=== PATIENT | male | born 1975 | race Caucasian/White ===

== ENCOUNTER 2018-09-24 19:51 | Observation (INO) | payer SELFPAY ==
[2018-09-24] MEDS ORDERED: MORPHINE 4 MG/ML SYR ONE (20:00)
[2018-09-24 20:18] LABS: Absolute Lymphocytes (CBC) 2.2 K/uL (0.7-4.9); Absolute Monocytes 0.6 K/uL (0.1-1.3); Absolute Neutrophil 5.6 K/uL (1.8-8.0); Basophils % 0.9 % (0-1.3); Eosinophils % 1.5 % (0-4.4); Hematocrit 41.4 % (39.6-49.0); Lymphocytes % 25.1 % (15.3-44.8); MCH 28.5 pg (27.0-35.0); MPV 7.3 fL (7.6-11.3); RBC Red Blood Cell Count 4.76 M/uL (4.33-5.43)
[2018-09-24] MEDS ORDERED: NA CHLORIDE 0.9% 1,000 ML ONE ×2 (20:19→23:14)
[2018-09-24] MEDS ORDERED: CEFAZOLIN/SWI 1gm 1 GM/10 ML SYR ONE (20:19)
--- NOTE | 2018-09-24 20:25 | RAD REPORT ---
EXAM DESCRIPTION: Jamar Martinez Left09/24/2018 8:02 pm CLINICAL HISTORY: Left leg pain status post injury FINDINGS: No fracture is seen. Soft tissue laceration involves the lateral aspect of the knee.
[2018-09-24 20:29] LABS: Potassium 3.3 mmol/L (3.5-5.1)
--- NOTE | 2018-09-24 20:36 | ER ---
Nurse's Notes [facility] Name: Uriel Benz Age: 43 yrs Sex: Male : 1975 Arrival Date: 09/24/2018 Time: 19:52 Bed 20 Private MD: Diagnosis: Laceration without foreign body of lower leg;Laceration of tendon of lower leg muscle unspecified Presentation: 09/24 19:52 Presenting complaint: Patient states: "I was doing some tree work up in the tree and my jd3 chain saw kicked back on me and got me in the left leg.". Transition of care: patient was not received from another setting of care. Complicating Factors: There are no complicating factors for this patient. Onset of symptoms was September 24, 2018. Risk Assessment: Do you want to hurt yourself or someone else? Patient reports no desire to harm self or others. Initial Sepsis Screen: Does the patient meet any 2 criteria? HR > 90 bpm. No. Patient's initial sepsis screen is negative. Does the patient have a suspected source of infection? Yes: Skin breakdown/wound. Care prior to arrival: None. 19:52 Method Of Arrival: Wheelchair jd3 19:52 Acuity: [place] 2 jd3 Historical: - Allergies: 20:21 No Known Allergies; jd3 - Home Meds: 20:21 None [Active]; jd3 - PMHx: 20:21 Chronic pain; lung problems due to drinking gas as a child; jd3 - PSHx: 20:21 right hand; jd3 - Immunization history:: Adult Immunizations up to date. - Social history:: Smoking status: Patient uses tobacco products, denies chronic smoking, but will smoke occasionally, chewing tobacco. - Ebola Screening: : Patient negative for fever greater than or equal to 101.5 degrees Fahrenheit, and additional compatible Ebola Virus Disease symptoms. Screenin:24 Abuse screen: Denies threats or abuse. Nutritional screening: No deficits noted. jd3 Tuberculosis screening: No symptoms or risk factors identified. Fall Risk IV access (20 points). Ambulatory Aid- None/Bed Rest/Nurse Assist (0 pts). Gait- Weak (10 pts.). Mental Status- Oriented to own ability (0 pts). Total Chappell Fall Scale indicates Low Risk Score (25-44 pts). Fall prevention measures have been instituted. Side Rails Up X 2 Placed close to Nursing Station Frequent Obs/Assesments occuring Family Present and informed to notify staff if they need to leave bedside. Assessment: 19:57 General: Appears uncomfortable, Behavior is calm, cooperative. Pain: Complains of pain jd3 in left leg. Neuro: Level of Consciousness is awake, alert, obeys commands, Oriented to person, place, time, situation, Appropriate for age Intact. Cardiovascular: Capillary refill < 3 seconds Patient's skin is warm and dry. Respiratory: Airway is patent Respiratory effort is even, unlabored, Respiratory pattern is regular, symmetrical. GI: No signs and/or symptoms were reported involving the gastrointestinal system. : No signs and/or symptoms were reported regarding the genitourinary system. EENT: No signs and/or symptoms were reported regarding the EENT system. Derm: Skin is intact, Skin is dry, Skin is normal, Skin temperature is warm Wound noted lateral aspect of left knee Wound is open wound, full thickness cut from chain saw. Musculoskeletal: Circulation, motion, and sensation intact. Range of motion: limited in left knee and left ankle. Injury Description: Laceration sustained to lateral aspect of left knee is jagged, not bleeding. 20:45 Reassessment: No changes from previously documented assessment. Patient and/or family jd3 updated on plan of care and expected duration. Pain level reassessed. Patient is alert, oriented x 3, equal unlabored respirations, skin warm/dry/pink. 21:15 Reassessment: No changes from previously documented assessment. Patient and/or family jd3 updated on plan of care and expected duration. Pain level reassessed. Patient is alert, oriented x 3, equal unlabored respirations, skin warm/dry/pink. report given to OR nurse. Vital Signs: 19:55 BP 140 / 86; Pulse 112; Resp 19 S; Temp 98.5(O); Pulse Ox 100% on R/A; Weight 72.57 kg jd3 (R); Height 5 ft. 11 in. (180.34 cm) (R); Pain 10/10; 20:30 BP 130 / 80; Pulse 90; Resp 19 S; Pulse Ox 97% on R/A; jd3 19:55 Body Mass Index 22.32 (72.57 kg, 180.34 cm) jd3 ED Course: 19:52 Patient arrived in ED. ds1 19:52 [facility] F[facility]-C [facility]. snw 19:52 Cassius Rios MD is Attending Physician. snw 19:55 Arm band placed on. jd3 19:57 Inserted saline lock: 18 gauge in right forearm, using aseptic technique. Blood jd3 collected. placed by Luz VIRAMONTES. 20:02 Tib Fib Left XRAY In Process Unspecified. EDMS 20:10 Rich Lang RN is Primary Nurse. jd3 20:20 Triage completed. jd3 20:25 Patient has correct armband on for positive identification. Bed in low position. Call jd3 light in reach. Side rails up X2. Adult w/ patient. 20:33 Yonatan Ann MD is Hospitalizing Provider. snw 21:01 Chest Single View XRAY In Process Unspecified. EDMS 21:21 No provider procedures requiring assistance completed. EKG done, by ED staff, reviewed jd3 by Areli SOTO. Patient admitted, IV remains in place. Administered Medications: 20:03 Drug: morphine 4 mg Route: IVP; Site: right forearm; jd3 21:00 Follow up: Response: No adverse reaction; Pain is decreased jd3 20:18 Drug: NS 0.9% 1000 ml Route: IV; Rate: 1 bolus; Site: right forearm; jd3 21:00 Follow up: Response: No adverse reaction; IV Status: Completed infusion; IV Intake: jd3 1000ml 20:18 Drug: Ancef 1 grams Route: IVPB; Site: right forearm; jd3 21:00 Follow up: Response: No adverse reaction; IV Status: Completed infusion jd3 21:14 Drug: NS 0.9% 500 ml Route: IV; Rate: calculated rate; Site: right forearm; jd3 21:16 Follow up: Response: No adverse reaction; IV Status: Infusion continued upon admission jd3 21:15 Drug: Potassium Chloride 20 mEq Route: IV; Rate: calculated rate; Site: right forearm; jd3 21:16 Follow up: Response: No adverse reaction; IV Status: Infusion continued upon admission jd3 22:25 Not Given (Physician Discretion): Lidocaine (1 %) 1 vials 20 ml Infiltration once; to jd3 bedside Intake: 21:00 IV: 1000ml; Total: 1000ml. jd3 Outcome: 20:35 Decision to Hospitalize by Provider. snw 21:21 Patient left the ED. jd3 21:21 Admitted to OR accompanied by nurse, via stretcher, with chart, Report called to jd3 report given to OR nurse. 21:21 Condition: stable 21:21 Instructed on the need for admit, Demonstrated understanding of instructions. jd3 Signatures: Dispatcher [facility] EDMD Areli Larson FNP-C FNP-Naina Savage ds1 Rich Lang RN RN jd3 Corrections: (The following items were deleted from the chart) 22:20 21:15 Reassessment: report given to OR nurse jd3 jd3 22:23 22:22 Response: No adverse reaction; IV Status: Infusion continued upon admission jd3 jd3 :35 22:20 No provider procedures requiring assistance completed. jd3 jd3 :35 22:20 Patient admitted, IV remains in place. jd3 jd3 :35 22:20 EKG done, by ED staff, reviewed by Areli SOTO jd3 jd3
--- NOTE | 2018-09-24 20:36 | EDPHYS ---
Physician Documentation [facility] Name: Uriel Benz Age: 43 yrs Sex: Male : 1975 Arrival Date: 09/24/2018 Time: 19:52 Bed 20 Private MD: ED Physician Cassius Rios HPI: 09/24 19:57 This 43 yrs old Male presents to ER via Unassigned with complaints of snw Laceration To Leg. 19:57 The patient has a laceration related to: working, occurred outdoors, and pt was tied snw off 80 feet off the ground and the chainsaw he was using kicked back and struck him to left proximal lower leg. The laceration(s) is(are) located on the lateral aspect of left knee. Onset: The symptoms/episode began/occurred suddenly, just prior to arrival. Associated signs and symptoms: The patient has no apparent associated signs or symptoms. The patient has not experienced similar symptoms in the past. It is unknown whether or not the patient has recently seen a physician. no allergies, no meds, pt states he did not fall. 20:25 Pt last po 45 min prior to wound, NPO status discussed. snw Historical: - Allergies: 20:21 No Known Allergies; jd3 - Home Meds: 20:21 None [Active]; jd3 - PMHx: 20:21 Chronic pain; lung problems due to drinking gas as a child; jd3 - PSHx: 20:21 right hand; jd3 - Immunization history:: Adult Immunizations up to date. - Social history:: Smoking status: Patient uses tobacco products, denies chronic smoking, but will smoke occasionally, chewing tobacco. - Ebola Screening: : Patient negative for fever greater than or equal to 101.5 degrees Fahrenheit, and additional compatible Ebola Virus Disease symptoms. ROS: 19:57 Constitutional: Negative for fever, chills, and weight loss, Eyes: Negative for injury, snw pain, redness, and discharge, ENT: Negative for injury, pain, and discharge, Neck: Negative for injury, pain, and swelling, Cardiovascular: Negative for chest pain, palpitations, and edema, Respiratory: Negative for shortness of breath, cough, wheezing, and pleuritic chest pain, Abdomen/GI: Negative for abdominal pain, nausea, vomiting, diarrhea, and constipation, Back: Negative for injury and pain, : Negative for injury, bleeding, discharge, and swelling, Skin: Negative for injury, rash, and discoloration, Neuro: Negative for headache, weakness, numbness, tingling, and seizure. 19:57 MS/extremity: Positive for injury or acute deformity, pain, of the lateral aspect of left knee. Exam: 19:56 Constitutional: This is a well developed, well nourished patient who is awake, alert, snw and in no acute distress. Head/Face: Normocephalic, atraumatic. Eyes: Pupils equal round and reactive to light, extra-ocular motions intact. Lids and lashes normal. Conjunctiva and sclera are non-icteric and not injected. Cornea within normal limits. Periorbital areas with no swelling, redness, or edema. ENT: Nares patent. No nasal discharge, no septal abnormalities noted. Tympanic membranes are normal and external auditory canals are clear. Oropharynx with no redness, swelling, or masses, exudates, or evidence of obstruction, uvula midline. Mucous membranes moist. Neck: Trachea midline, no thyromegaly or masses palpated, and no cervical lymphadenopathy. Supple, full range of motion without nuchal rigidity, or vertebral point tenderness. No Meningismus. Chest/axilla: Normal chest wall appearance and motion. Nontender with no deformity. No lesions are appreciated. 19:56 Respiratory: Lungs have equal breath sounds bilaterally, clear to auscultation and percussion. No rales, rhonchi or wheezes noted. No increased work of breathing, no retractions or nasal flaring. Abdomen/GI: Soft, non-tender, with normal bowel sounds. No distension or tympany. No guarding or rebound. No evidence of tenderness throughout. Back: No spinal tenderness. No costovertebral tenderness. Full range of motion. Neuro: Awake and alert, GCS 15, oriented to person, place, time, and situation. Cranial nerves II-XII grossly intact. Motor strength 5/5 in all extremities. Sensory grossly intact. Cerebellar exam normal. Normal gait. Psych: Awake, alert, with orientation to person, place and time. Behavior, mood, and affect are within normal limits. 19:56 Cardiovascular: Rate: tachycardic, Rhythm: regular, Heart sounds: normal. 19:56 Skin: Appearance: normal except for affected area, injury, laceration(s), the wound is approximately 8 cm(s), with a depth of 4 cm(s), of the lateral aspect of left knee. Vital Signs: 19:55 BP 140 / 86; Pulse 112; Resp 19 S; Temp 98.5(O); Pulse Ox 100% on R/A; Weight 72.57 kg jd3 (R); Height 5 ft. 11 in. (180.34 cm) (R); Pain 10/10; 20:30 BP 130 / 80; Pulse 90; Resp 19 S; Pulse Ox 97% on R/A; jd3 19:55 Body Mass Index 22.32 (72.57 kg, 180.34 cm) jd3 MDM: 19:55 Patient medically screened. snw 20:23 Data reviewed: vital signs, nurses notes. Data interpreted: Pulse oximetry: on room air snw is 100 %. Interpretation: normal. Counseling: I had a detailed discussion with the patient and/or guardian regarding: the historical points, exam findings, and any diagnostic results supporting the discharge/admit diagnosis, the presence of at least one elevated blood pressure reading (>120/80) during this emergency department visit, lab results, radiology results. Physician consultation: Yonatan Ann MD was called at 20:18, was contacted at 20:18, regarding patient's condition, OR washout and closure, and will see patient in ED, shortly. 09/24 19:54 Order name: CBC with Diff; Complete Time: 20:20 snw 09/24 19:54 Order name: Chem 7; Complete Time: 20:32 snw 09/24 19:54 Order name: Tib Fib Left XRAY; Complete Time: 20:26 snw 09/24 19:54 Order name: TS; Complete Time: 21:02 snw 09/24 20:44 Order name: Chest Single View XRAY; Complete Time: 21:18 snw 09/24 21:02 Order name: ABO/RH no charge; Complete Time: 21:02 EDMS 09/24 19:55 Order name: Wound Care; Complete Time: 22:23 snw 09/24 20:44 Order name: EKG; Complete Time: 20:44 snw 09/24 20:16 Order name: consult Pablo-Yonatan Ann MD (ORTHOPEDICS) snw 09/24 20:23 Order name: NPO; Complete Time: 20:25 snw 09/24 20:44 Order name: EKG - Nurse/Tech; Complete Time: 21:13 snw Administered Medications: 20:03 Drug: morphine 4 mg Route: IVP; Site: right forearm; jd3 21:00 Follow up: Response: No adverse reaction; Pain is decreased jd3 20:18 Drug: NS 0.9% 1000 ml Route: IV; Rate: 1 bolus; Site: right forearm; jd3 21:00 Follow up: Response: No adverse reaction; IV Status: Completed infusion; IV Intake: jd3 1000ml 20:18 Drug: Ancef 1 grams Route: IVPB; Site: right forearm; jd3 21:00 Follow up: Response: No adverse reaction; IV Status: Completed infusion jd3 21:14 Drug: NS 0.9% 500 ml Route: IV; Rate: calculated rate; Site: right forearm; jd3 21:16 Follow up: Response: No adverse reaction; IV Status: Infusion continued upon admission jd3 21:15 Drug: Potassium Chloride 20 mEq Route: IV; Rate: calculated rate; Site: right forearm; jd3 21:16 Follow up: Response: No adverse reaction; IV Status: Infusion continued upon admission jd3 22:25 Not Given (Physician Discretion): Lidocaine (1 %) 1 vials 20 ml Infiltration once; to jd3 bedside Disposition: 09/25 06:50 Co-signature as Attending Physician, Cassius Rios MD I agree with the assessment and wa plan of care. Disposition: 09/24/18 20:35 Hospitalization ordered by Yonatan Ann for Observation. Preliminary diagnosis are Laceration without foreign body of lower leg, Laceration of tendon of lower leg muscle unspecified. - Bed requested for Operating Room. - Status is Observation. jd3 - Condition is Stable. - Problem is new. - Symptoms are unchanged. UTI on Admission? No Signatures: Dispatcher [employer] EDMS Areli Larson FNP-C ASSOCIATE STORE MANAGER-[employer] Cassius Rios MD MD wa Davies, Jonathon, RN RN jd3 Corrections: (The following items were deleted from the chart) 09/24 21:21 20:35 Hospitalization Ordered by Yonatan Ann MD for Observation. Preliminary diagnosis jd3 is Laceration without foreign body of lower leg; Laceration of tendon of lower leg muscle unspecified. Bed requested for Operating Room. Status is Observation. Condition is Stable. Problem is new. Symptoms are unchanged. UTI on Admission? No. snw
[2018-09-24] MEDS ORDERED: KCL 20 MEQ/100 mL IVPB 20 MEQ/100 ML BAG IV ONE (21:03)
--- NOTE | 2018-09-24 21:07 | RAD REPORT ---
EXAM DESCRIPTION: Santino Single View09/24/2018 9:01 pm CLINICAL HISTORY: Chest pain COMPARISON: 2009 FINDINGS: The lungs appear clear of acute infiltrate. The heart is normal size IMPRESSION: No acute abnormalities displayed
[2018-09-24] MEDS ORDERED: NA CHLORIDE 0.9% 500 ML ONE (21:08)
[2018-09-24] MEDS ORDERED: PROPOFOL 200 MG/20 ML VIAL IV ONE (21:22)
[2018-09-24] MEDS ORDERED: SUCCINYLCHOLINE 20 MG/ML (10 ML) IV ONE (21:30)
[2018-09-24] MEDS ORDERED: FENTANYL CITR 100 MCG/2 ML ONE (21:40)
[2018-09-24] MEDS ORDERED: MIDAZOLAM HCL 2 MG/2 ML INJ ONE (21:41)
[2018-09-24] MEDS ORDERED: KETOROLAC 30 MG/ML INJ ONE (22:03)
[2018-09-24] MEDS ORDERED: DEXAMETHASONE 10 MG/ML VIAL ONE (22:03)
[2018-09-24] MEDS ORDERED: ONDANSETRON HCL 40 MG/20 ML VIAL ONE (22:03)
[2018-09-24] MEDS ORDERED: DOCUSATE NA 100 MG CAP PO PRN (22:48)
[2018-09-24] MEDS ORDERED: MORPHINE 4 MG/ML SYR IV PRN (22:48)
[2018-09-24] MEDS ORDERED: ONDANSETRON 4 MG/2 ML VIAL IV PRN (22:48)
--- NOTE | 2018-09-24 22:48 | P.BOP ---
Preoperative diagnosis: left knee laceration Postoperative diagnosis: same, left knee traumatic arthrotomy Primary procedure: Irrigation and debridement left knee wound Secondary procedure: Irrigation and debridement left knee traumatic arthrotomy Fabrication Supervisor: NONE,NONE Estimated blood loss: 20 cc Specimen: none Findings: see dictation Anesthesia: General Complications: None Implants: none Fluids & blood products: per anesthesia Transferred to: Recovery Room Condition: Good
[2018-09-24] MEDS: HYDROMORPHONE HCL 1 MG/ML INJ ONE ×2 (23:23→23:28)
[2018-09-25] MEDS: HYDROCODONE/APAP 7.5/325 MG TAB PO PRN ×2 (00:37→05:11)
[2018-09-25] MEDS ORDERED: CEFAZOLIN SODIUM 1 GM/VIAL ONE (01:42)
[2018-09-25] MEDS ORDERED: NA CHLORIDE 0.9% 50 ML ONE (01:46)
[2018-09-25] MEDS ORDERED: CEFAZOLIN/NS 1gm 1 GM/50 ML BAG IVPB SCH (02:00)
[2018-09-25 05:28] LABS: Absolute Lymphocytes (CBC) 0.8 K/uL (0.7-4.9); Absolute Monocytes 0.4 K/uL (0.1-1.3); Absolute Neutrophil 6.4 K/uL (1.8-8.0); Basophils % 0.3 % (0-1.3); Eosinophils % 0.1 % (0-4.4); Hematocrit 35.7 % (39.6-49.0); Lymphocytes % 10.3 % (15.3-44.8); MCH 29.1 pg (27.0-35.0); MCV 86.6 fL (80-100); MPV 7.5 fL (7.6-11.3); RBC Red Blood Cell Count 4.12 M/uL (4.33-5.43)
[2018-09-25 05:41] LABS: BUN Blood Urea Nitrogen 16 mg/dL (7-18); Bicarbonate 27 mmol/L (21-32); Glucose Level 134 mg/dL (74-106); Potassium 4.8 mmol/L (3.5-5.1); Sodium Level 141 mmol/L (136-145)
--- NOTE | 2018-09-25 05:49 | HP ---
Date of Admission: 09/24/2018 Chief Complaint: Left knee laceration. History Of Present Illness: Uriel is a 43-year-old male who presented to the ER today after sustain ing an injury to his left knee. He states he was cutting a tree with a chainsaw when the chainsaw ca me back and struck the lateral aspect of his left knee. He reports subsequent pain and bleeding to t he lateral aspect of his left knee. He was brought to the emergency room, had x-rays which were negat christel for any fracture or dislocation but had a laceration over the left knee with gross contamination. He was up-to-date with his tetanus vaccine. He was given Ancef in the emergency room. He denies an y numbness or tingling of the left lower extremity. He reports a full range of motion of the left kn ee though he does report a history of a prior left ankle injury and chronic left ankle pain. Review of Systems: As above, otherwise negative. Past Medical History: None. Past Surgical History: None. Medication: Naproxen. Allergies: NO KNOWN DRUG ALLERGIES. Social History: Reports both history of smoking as well as smokeless tobacco use. Reports occasiona l alcohol use. Family History: Reviewed and noncontributory. Physical Examination: General: In no apparent distress. HEENT: Normocephalic, atraumatic. Neck: Supple. Cardiovascular: Brisk cap refill to all digits. Chest: Nonlabored breathing. Abdomen: Nondistended. Psychiatric: Responsive to exam. Musculoskeletal: Bilateral upper extremities functional range of motion without pain or gross deform ities. No obvious dislocations. Right lower extremity functional range of motion without pain. No gross deformities. No obvious dislocations. Left lower extremity, he has an approximately 10 cm com plex laceration over the lateral aspect of the left knee with some gross contamination. No exposed b one noted. He has the range of motion of the knee with pain. No effusion noted. He has positive fi ring in EHL, FHL, gastrocsoleus complex, tibialis anterior. Sensation intact in deep peroneal, super ficial peroneal and tibial nerve distribution, 2+ dorsalis pedis pulse. Diagnostic Studies: X-rays of the left knee are negative for any fracture or dislocation. Negative for any obvious foreign body. Assessment And Plan: Uriel is a 43-year-old male with a complex left knee laceration and possible t raumatic arthrotomy. I discussed with the patient at length his diagnosis as well as treatment optio ns. Given the contamination of the knee wounds, I have recommend an urgent irrigation and debridemen t and exploration to rule out traumatic arthrotomy. He expressed understanding and elected to procee d with operative treatment. He has already received antibiotics in emergency room and we will contin ue his IV antibiotics postoperatively. We will continue to monitor him after surgery. KALPESH/PATRICK Voice ID: [id number]
--- NOTE | 2018-09-25 06:36 | EKG ---
Test Date: 2018-09-24 Test Time: 21:06:34 Texturing Machine Fixer: JAMES MEASUREMENT RESULTS: Intervals: Rate: 84 CO: 156 QRSD: 80 QT: 372 QTc: 439 [place]: P: 69 CO: 156 QRS: 68 T: 65 INTERPRETIVE STATEMENTS: Normal sinus rhythm cannot rule out Anterior infarct, age undetermined Abnormal ECG Compared to ECG 07/20/2010 14:54:51 possible Myocardial infarct finding now present Sinus tachycardia no longer present Electronically Signed On 09-25-18 06:35:54 CDT by Kory Hollingsworth
[2018-09-25] MEDS ORDERED: INFLUENZA VACCINE (for 3y+) 0.5 ML DOSE IMVAC ONE (08:00)
[2018-09-25] MEDS: CEFAZOLIN/SWI 1gm 1 GM/10 ML SYR IV SCH ×3 (09:18→15:21)
[2018-09-25] MEDS ORDERED: HYDROCODONE/APAP 7.5/325 MG TAB PO PRN (10:08)
--- NOTE | 2018-09-25 10:22 | OP ---
Date of Procedure: 09/24/2018 Surgeon: Yonatan Ann MD Preoperative Diagnosis: Left knee complex laceration. Postoperative Diagnoses: 1. Left knee complex laceration. 2. Left knee traumatic arthrotomy. Procedure Performed: 1. Irrigation and debridement, left knee wound. 2. Irrigation and debridement, left knee traumatic arthrotomy. 3. Closure of the complex laceration, 10 cm. Anesthesia: General endotracheal. Fluids: Per Anesthesia record. Ebl: 20 cc. Tourniquet Time: None. Implants: None. Specimens: None. Complications: None. Indication For Procedure: This is a 43-year-old male who presented to the ER today after sustaining a laceration of the lateral aspect of his left knee while using a chainsaw. He was neurovascularly intact noted during the examination of his left knee. We discussed with the patient at length risks and benefits associated with operative and nonoperative treatment. He expressed understanding and elected to proceed with operative treatment. Description Of Procedure: After informed consent was obtained, the patient was identified in the preoperative holding area. The left lower extremity was marked. The patient was then taken back to the operating room, placed under general endotracheal anesthesia, transferred to the operating table in the supine fashion. The left lower extremity was then prepped and draped in usual sterile fashion. A time-out was initiated. The correct patient and procedure were confirmed and identified. The patient had received preoperative antibiotics in the emergency room given his injury. The left knee was then first irrigated with 4 L of normal saline using gravity irrigation and use of cysto tubing. Gross examination was performed. Once the wound was exposed, it was noted that there was minimal gross contamination within the wound. Hemostasis was achieved with the aid of Bovie electrocautery. After additional irrigation with 4 L of normal saline down to the left knee, the knee was explored further. There was noted to be a traumatic arthrotomy of the knee joint with articular surface of the lateral femoral condyle noted. Therefore, the arthrotomy was exposed and 4 L of normal saline was then used to irrigate the left knee joint without complication. After the wound in the knee joint had been irrigated thoroughly with normal saline. During exposure, the patient was noted to have a frayed IT band which had been cut with a chainsaw. The IT band edges were frayed and unalbe to be approximated. The knee was stressed. There was no significant varus instability noted. Traumatic arthrotomy was then loosely approximated using a 2-0 Monocryl. The skin edges were then freshened and all nonviable tissue was incised and a 10 cm laceration was then approximated using a 2-0 nylon. This was done loosely to allow for drainage. Sterile dressings were then applied and the patient was placed in a knee immobilizer. He was awakened and transferred to PACU in a stable condition. Postoperative Plan: He will be admitted to the floor for observation and pain control. Physical Therapy will be consulted tomorrow to aid in mobilization. He will get an IV antibiotics while on the floor and will likely discharge tomorrow evening. KALPESH/PATRICK Voice ID: [id number] Report ID: [id number] FANNY
== END 2018-09-25 15:46 | disposition home or self-care (01) ==
LOC: ER 19:51 → 2ND 23:04
PROVIDERS: ADMIT Orthopaedic Surgery Sports Medicine; ATTEND Orthopaedic Surgery Sports Medicine
PROC: 0JQP3ZZ Repair Left Lower Leg Subcutaneous Tissue and Fascia, Percutaneous Approach (ICD-10-PCS; principal; 2018-09-24 21:30)
DX: S81.012A Laceration without foreign body, left knee, initial encounter (principal); W31.2XXA Contact with powered woodworking and forming machines, initial encounter; Y92.89 Other specified places as the place of occurrence of the external cause; Z23 Encounter for immunization
CPT/HCPCS: 36415; 71045; 80048; 85025; 86850; 86900; 86901; 93005; 96365; 96375; 97163; 99285; G0008; G0378; J0330; J0690; J1100; J1170; J2250; J2405; J2704; J3010; J7030; Q2035

== ENCOUNTER 2025-08-20 16:04 | Emergency (ER) | payer OTHER, SELFPAY ==
[2025-08-20] MEDS ORDERED: NA CHLORIDE 0.9% 1,000 ML ONE (16:08)
[2025-08-20] MEDS ORDERED: FENTANYL CITR 100 MCG/2 ML ONE (16:08)
[2025-08-20] MEDS ORDERED: KETAMINE HCL IN 0.9 % NACL 50 MG/5 ML SYRINGE IV ONE ×2 (16:16→16:25)
[2025-08-20 16:28] LABS: Absolute Lymphocytes (CBC) 3.2 K/uL (0.7-4.9); Hematocrit 39.3 % (39.6-49.0); Hemoglobin 13.4 g/dL (13.6-17.9); MCH 29.2 pg (27.0-35.0); MCHC 34.1 g/dL (32.0-36.0); MCV 85.8 fL (80-100); MPV 7.0 fL (7.6-11.3); Nucleated RBC Absolute Count 0.0 (0-0); Nucleated Red Blood Cells % 0.1 % (0-0); RBC Red Blood Cell Count 4.58 M/uL (4.33-5.43); White Blood Count 9.70 thou/uL (4.3-10.9)
[2025-08-20 16:36] LABS: PT Prothrombin Time 11.9 SECONDS (10-13.0); Protime INR 1.05
[2025-08-20 16:53] LABS: ALT/SGPT 49 U/L (16-61); Albumin 3.4 g/dL (3.4-5.0); Albumin/Globulin Ratio 0.9 (1.1-1.8); Alkaline Phosphatase 68 U/L (45-117); Anion Gap 13.6 mEq/L (5.0-15.0); BUN Blood Urea Nitrogen 17 mg/dL (7-18); Globulin 3.7 g/dL (2.3-3.5); Glucose Level 117 mg/dL (74-106); NT PRO-BNP 64 pg/mL (<125); Troponin High Sensitivity 5.8 pg/mL (<58.9)
[2025-08-20 16:55] LABS: AST/SGOT 48 U/L (15-37); Bilirubin Indirect, Calculated 0.1 mg/dL (0.2-0.8); Potassium 3.6 mEq/L (3.5-5.1)
[2025-08-20 16:56] LABS: Magnesium 2.0 mg/dL (1.6-2.4)
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
[2025-08-20 17:27] VITALS: TEMP 97.1; O2SAT 100
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
--- NOTE | 2025-08-20 17:34 | RAD REPORT ---
Exam:Pelvis CLINICAL HISTORY: Pelvic pain FINDINGS: Patient is rotated limiting evaluation. No gross fracture or dislocation seen.
--- NOTE | 2025-08-20 17:36 | RAD REPORT ---
EXAM:Femur Left CLINICAL HISTORY: Left leg pain FINDINGS: 2 films are submitted. Both are labeled AP. No gross fracture seen. If the patient continues to have left leg pain Then lateral x-rays would be recommended.
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
--- NOTE | 2025-08-20 17:57 | RAD REPORT ---
EXAMINATION: CT HEAD WITHOUT CONTRAST CT CERVICAL SPINE WITHOUT CONTRAST CLINICAL INDICATION: Head and neck injury status post fall. Head and neck pain TECHNIQUE: Axial CT images from the skull base to the vertex without intravenous contrast. Axial CT i mages through the cervical spine were obtained without intravenous contrast. Sagittal and coronal reformatted images were created from the data set. Coronal and sagittal reformatted images were creat ed from the data set. One or more of the following dose reduction techniques were used: Automated exposure control, adjustment of the mA and/or kV according to patient size, and/or iterative reconstr uction. Unless otherwise specified, incidental findings do not require dedicated imaging follow-up. [id number]. Comparison: none FINDINGS: Increased density is present along the anterior parietal convexity to the right and left of midline. Maximum thickness 2 mm. Ventricles are normal in caliber. No significant hypodensity within the brain No extra-axial fluid collection. No fluid within the sinuses/mastoids No fracture or dislocation is seen involving the cervical spine. Loss of the normal lordosis of the cervical spine may be secondary to muscle spasm. Dental caries is present IMPRESSION: Increased density along the parietal convexity to the right and left of midline which is very small. It is uncertain if this represents a very small epidural hematoma or artifact. It is recommended that the patient either have a repeat head CT or MRI for further evaluation. The examination was disc ussed with Shiva santiago in the emergency room at 5:50 PM August 20, 2025 A cervical fracture is not seen.
[2025-08-20 18:20] VITALS: BP 154/93
== END 2025-08-20 17:22 | disposition short-term general hospital (02) ==
LOC: ER 16:04
PROC: 0QSJ35Z Reposition Right Fibula with External Fixation Device, Percutaneous Approach (ICD-10-PCS; principal; 2025-08-20)
PROC: 0QSG35Z Reposition Right Tibia with External Fixation Device, Percutaneous Approach (ICD-10-PCS; 2025-08-20)
DX: S82.101A Unspecified fracture of upper end of right tibia, initial encounter for closed fracture (principal); S82.451A Displaced comminuted fracture of shaft of right fibula, initial encounter for closed fracture; V09.09XA Pedestrian injured in nontraffic accident involving other motor vehicles, initial encounter
CPT/HCPCS: 96361; 85025; 80048; 36415; 86900; 83735; 86850; 85610; 86901; 80076; 84484; 83880; 70450; 72125; 71260; 74177; 72170; 73552 ×2; 96375; 96374; 99285; 27752; Q9967; J3490 ×2; J3010; J7030